=== PATIENT | male | born 2000 | race Hispanic/Latino ===

== ENCOUNTER 2024-03-31 21:35 | Emergency (ER) | payer MEDICAID, OTHER ==
[~2024-03-31] VITALS: Ht 162.6 cm; Wt 58.5 kg
[2024-03-31 21:41] VITALS: BP 135/87; PULSE 63; RESP 18
== END 2024-03-31 23:05 | disposition home or self-care (01) ==
LOC: EDH 21:35
DX: M94.0 Chondrocostal junction syndrome [Tietze] (principal)
CPT/HCPCS: 99281